=== PATIENT | female | born 1945 ===

== ENCOUNTER 2017-01-08 12:00 | Emergency (ER) | payer OTHER ==
[2017-01-08 12:01] VITALS: BMI 29.2
[2017-01-08 12:07] VITALS: BP 173/78; RESP 18; TEMP 97.3
[2017-01-08] MEDS ORDERED: Bacitracin 500 Units/gm Oint Foilpak UD TOP ONE (12:33)
--- NOTE | 2017-01-08 12:33 | C.PDOC ---
History Of Present Illness 71yo female with history of diabetes, presents to ED for evaluation of laceration sustained on her left 4th digit 4 days ago. Patient reports she accidentally injured herself with a knife in the kitchen. She is currently complaining of swelling to the area. She denies any fever, chills or discharge from the laceration site. Time Seen by Provider: 01/08/17 12:23 Chief Complaint (Nursing): Finger,Hand,&Wrist History Per: Patient History/Exam Limitations: no limitations Onset/Duration Of Symptoms: Days (4) Current Symptoms Are (Timing): Still Present Quality Of Symptoms: Swollen. denies: Draining Past Medical History Reviewed: Historical Data, Nursing Documentation, Vital Signs Vital Signs: Last Vital Signs Temp 97.3 F L 01/08/17 12:02 Pulse 102 H 01/08/17 12:02 Resp 18 01/08/17 12:02 BP 173/78 H 01/08/17 12:02 Pulse Ox 100 01/08/17 12:33 - Medical History PMH: Diabetes, HTN, Hypercholesterolemia Denies: Chronic Kidney Disease Surgical History: No Surg Hx - [facility] Procedures TETANUS TOXOID ADMINIST (05/04/13) Family History: States: No Known Family Hx, Unknown Family Hx - Social History Hx Tobacco Use: No Hx Alcohol Use: No Hx Substance Use: No - Immunization History Hx Tetanus Toxoid Vaccination: No Hx Influenza Vaccination: No Hx Pneumococcal Vaccination: No Review Of Systems Except As Marked, All Systems Reviewed And Found Negative. Constitutional: Negative for: Fever, Chills Musculoskeletal: Positive for: Hand Pain (laceration to left 4th digit, associted swelling) Physical Exam - Physical Exam Appears: Non-toxic, No Acute Distress Skin: Warm, Dry Neck: Supple Cardiovascular: Rhythm Regular Respiratory: Normal Breath Sounds Extremity: Normal ROM, No Deformity, Other (3mm open laceration over left 4th MCP; local erythema on tip of finger, no discharge noted.) Neurological/Psych: Oriented x3, Normal Speech, Normal Cognition ED Course And Treatment O2 Sat by Pulse Oximetry: 100 (RA) Pulse Ox Interpretation: Normal Medical Decision Making Medical Decision Making: Patient given antibiotics and instructions to follow up at clinic. Disposition Counseled Patient/Family Regarding: Diagnosis, Need For Followup, Rx Given - Disposition Referrals: [facility] [Outside] [facility] at [facility] [Outside] Disposition: HOME/ ROUTINE Disposition Time: 12:31 Condition: GOOD Prescriptions: Bacitracin [Bacitracin Opht OINT] 1 applic OD Q4 #1 tube Cephalexin [cephalexin] 500 mg PO BID #14 cap Sulfamethoxazole/Trimethoprim [Bactrim DS 800 mg-160 mg] 1 tab PO BID #14 tab Instructions: Cellulitis (ED), Laceration Without Closure (ED) Forms: [employer] (French) Print Language: LEBANESE - Clinical Impression Clinical Impression: Finger laceration, Cellulitis of finger - Scribe Statement The provider has reviewed the documentation as recorded by the Sil Shin Provider Attestation: All medical record entries made by the Sil were at my direction and personally dictated by me. I have reviewed the chart and agree that the record accurately reflects my personal performance of the history, physical exam, medical decision making, and the department course for this patient. I have also personally directed, reviewed, and agree with the discharge instructions and disposition. Orthopedic Care Application Of:: Finger Splint
[2017-01-08] MEDS ORDERED: Tmp-Smz 800 mg-160 mg DS Tab PO STA (12:34)
[2017-01-08] MEDS ORDERED: Tmp-Smz 800 mg-160 mg DS Tab ONE (12:39)
[2017-01-08] MEDS ORDERED: Bacitracin 500 Units/gm Oint Foilpak UD ONE (12:40)
[2017-01-08 13:00] VITALS: PULSE 99; O2SAT 96
== END 2017-01-08 13:00 | disposition home or self-care (01) ==
LOC: C.ER 12:00
DX: S61.215A Laceration without foreign body of left ring finger without damage to nail, initial encounter (principal); L03.012 Cellulitis of left finger; W26.0XXA Contact with knife, initial encounter

== ENCOUNTER 2017-10-10 12:07 | Emergency (ER) | payer MEDICARE ==
[2017-10-10 12:15] VITALS: O2SAT 98
[2017-10-10] MEDS ORDERED: Piperacillin/Tazobact 3.375 GM in Sodium Chloride 100 ML IVPB STA (12:36)
--- NOTE | 2017-10-10 12:53 | C.PDOC ---
History Of Present Illness 72 y/o female, with PMHx of diabetes, presents to ED c/o area of redness and swelling to left lower leg for the last 5 days. Pt notes she was seen at clinic for unrelated reason and was instructed to report to ER. Otherwise, she denies fever, chills, chest pain, shortness of breath, or any other complaints. Time Seen by Provider: 10/10/17 12:26 Chief Complaint (Nursing): Lower Extremity Problem/Injury History Per: Patient History/Exam Limitations: no limitations Past Medical History Reviewed: Historical Data, Nursing Documentation, Vital Signs Vital Signs: Last Vital Signs Temp 97.8 F 10/10/17 12:11 Pulse 95 H 10/10/17 12:11 Resp 16 10/10/17 12:11 BP 146/83 10/10/17 12:11 Pulse Ox 98 10/10/17 12:58 - Medical History PMH: Diabetes, HTN, Hypercholesterolemia Denies: Chronic Kidney Disease - [facility] Procedures TETANUS TOXOID ADMINIST (05/04/13) Family History: States: Unknown Family Hx - Social History Hx Tobacco Use: No Hx Alcohol Use: No Hx Substance Use: No - Immunization History Hx Tetanus Toxoid Vaccination: No Hx Influenza Vaccination: No Hx Pneumococcal Vaccination: No Review Of Systems Except As Marked, All Systems Reviewed And Found Negative. Constitutional: Negative for: Fever, Chills Cardiovascular: Negative for: Chest Pain Respiratory: Negative for: Shortness of Breath Musculoskeletal: Positive for: Leg Pain (left) Skin: Positive for: Other (redness, swelling to left lower leg) Neurological: Negative for: Weakness, Numbness Physical Exam - Physical Exam Appears: Non-toxic, No Acute Distress Skin: Warm, Dry, Other (area of induration and erythema to left lateral tib fib area) Head: Atraumatic, Normacephalic Eye(s): bilateral: Normal Inspection Oral Mucosa: Moist Neck: Normal ROM, Supple Chest: Symmetrical Cardiovascular: Rhythm Regular Respiratory: Normal Breath Sounds, No Rales, No Rhonchi, No Wheezing Gastrointestinal/Abdominal: Soft, No Tenderness Extremity: Normal ROM, No Tenderness, No Calf Tenderness, Capillary Refill ( less than 2 seconds), No Deformity, No Other (no palpable cord) Pulses: Left Dorsalis Pedis: Normal, Right Dorsalis Pedis: Normal Neurological/Psych: Oriented x3, Normal Speech, Normal Motor, Normal Sensation ED Course And Treatment - Laboratory Results Result Diagrams: 10/10/17 13:08 10/10/17 13:08 O2 Sat by Pulse Oximetry: 98 Pulse Ox Interpretation: Normal Medical Decision Making Medical Decision Making: Blood work ordered and reviewed. Pt was given Vancomycin, and Zosyn. Impression: Cellulitis Will attempt outpatient management for cellulitis. Disposition Counseled Patient/Family Regarding: Studies Performed, Diagnosis, Need For Followup, Rx Given - Disposition Referrals: [facility] [Outside] Disposition: HOME/ ROUTINE Disposition Time: 13:40 Condition: STABLE Additional Instructions: follow up with your doctor or medical clinic within 2 days call to make an appointment take medications as prescribed return to ER if symptoms worsens or progress Prescriptions: Cephalexin [Keflex] 500 mg PO QID #40 capsule Sulfamethoxazole/Trimethoprim [Bactrim DS 800 mg-160 mg] 1 tab PO BID #20 tab Instructions: Cellulitis (Skin Infection), Adult (DC) Forms: Gen Discharge Inst Moroccan, [employer] (Moroccan) Print Language: ROMANSH - Clinical Impression Clinical Impression: Cellulitis - Scribe Statement The provider has reviewed the documentation as recorded by the Scribe KP All medical record entries made by the Scribe were at my direction and personally dictated by me. I have reviewed the chart and agree that the record accurately reflects my personal performance of the history, physical exam, medical decision making, and the department course for this patient. I have also personally directed, reviewed, and agree with the discharge instructions and disposition.
[2017-10-10] MEDS ORDERED: Vancomycin 1 GM in Sodium Chloride 0.9% 200 ML IVPB STA (13:09)
[2017-10-10 13:12] LABS: BASO % 0.5 % (0.0-2.0); EOS # 0.1 K/uL (0.0-0.7); EOS % 1.2 % (0.0-4.0); HEMOGLOBIN 13.3 g/dL (11.0-16.0); LYMPH # 2.3 K/uL (1.0-4.3); LYMPH % 26.9 % (20.0-40.0); MEAN CELL VOLUME 84.5 fL (81.0-99.0); MEAN CORPUSCULAR HEMOGLOBIN 29.6 pg (27.0-31.0); MEAN PLATELET VOLUME 9.4 fL (7.2-11.7); MONO # 0.6 K/uL (0.0-0.8); MONO % 7.1 % (0.0-10.0); NEUT # 5.4 K/uL (1.8-7.0); NEUT % 64.3 % (50.0-75.0); RBC 4.5 Mil/uL (3.80-5.20); RED CELL DISTRIBUTION WIDTH 13.6 % (11.5-14.5); WHITE BLOOD COUNT 8.4 K/uL (4.8-10.8)
[2017-10-10] MEDS ORDERED: Piperacillin/Tazobact 3.375 gm 100 ML IVPB ONE (13:17)
[2017-10-10 13:26] LABS: ALB/GLOB RATIO 1.6 (1.0-2.1); ALBUMIN 4.4 g/dL (3.5-5.0); ALT/SGPT 27 U/L (9-52); AST/SGOT 18 U/L (14-36); BLOOD UREA NITROGEN 12 mg/dL (7-17); CALCIUM 10.9 mg/dl (8.6-10.4); GFR AFRICAN-AMERICAN > 60; GFR NON-AFRICAN AMERICAN > 60
[2017-10-10 13:47] VITALS: BP 146/73; PULSE 76; RESP 18; TEMP 98
== END 2017-10-10 13:48 | disposition home or self-care (01) ==
LOC: C.ER 12:07
DX: L03.116 Cellulitis of left lower limb (principal); I10 Essential (primary) hypertension; E11.9 Type 2 diabetes mellitus without complications; E78.00 Pure hypercholesterolemia, unspecified
CPT/HCPCS: 80053; 85025; 87040; 96374; 96375; 99285; J2543; J7050

== ENCOUNTER 2018-05-25 11:33 | Emergency (ER) | payer MEDICARE ==
[2018-05-25 12:00] VITALS: BMI 27.4
[2018-05-25 12:03] VITALS: O2SAT 96
[2018-05-25 13:54] LABS: SQUAMOUS EPITHIAL 1 /hpf (0-5); URINE BACTERIA OCC (<OCC); URINE BILIRUBIN NEGATIVE (NEGATIVE); URINE BLOOD NEGATIVE (NEGATIVE); URINE CLARITY Hazy (Clear); URINE COLOR Yellow (YELLOW); URINE GLUCOSE (UA) 3+ mg/dL (Normal); URINE LEUKOCYTE ESTERASE 3+ Leu/uL (Negative); URINE PROTEIN NEGATIVE (NEGATIVE); URINE UROBILINOGEN NORMAL mg/dL (0.2-1.0)
[2018-05-25] MEDS ORDERED: Tmp-Smz 800 mg-160 mg DS Tab PO STA (13:59)
[2018-05-25] MEDS ORDERED: Tmp-Smz 800 mg-160 mg DS Tab ONE (14:08)
--- NOTE | 2018-05-25 14:08 | C.PDOC ---
History Of Present Illness 72 year old female presents to ED with complaint of body aches and frontal headache for the past 2 days. Patient also complains of cough,fever, and chills. She states that she had her flu vaccine 6 months ago. Patient states she took nothing for her fever. Patient denies runny nose, nasal congestion, nausea, vomiting, and diarrhea. Time Seen by Provider: 05/25/18 12:08 Chief Complaint (Nursing): Flu-like Symptoms History Per: Patient History/Exam Limitations: no limitations Onset/Duration Of Symptoms: Days (2) Current Symptoms Are (Timing): Still Present Location Of Pain: Diffuse Myalgias, Headache Associated Symptoms: Fever, Chills, Cough, Myalgias. denies: Sputum, Sinus Drainage, Nasal Congestion, Nausea, Vomiting, Diarrhea Past Medical History Reviewed: Historical Data, Nursing Documentation, Vital Signs Vital Signs: Last Vital Signs Temp 98.5 F 05/25/18 12:00 Pulse 103 H 05/25/18 12:00 Resp 20 05/25/18 12:00 BP 120/75 05/25/18 12:00 Pulse Ox 96 05/25/18 12:00 - Medical History PMH: Diabetes, HTN, Hypercholesterolemia Denies: Chronic Kidney Disease Surgical History: No Surg Hx - [facility] Procedures TETANUS TOXOID ADMINIST (05/04/13) Family History: States: Unknown Family Hx - Social History Hx Tobacco Use: No Hx Alcohol Use: No Hx Substance Use: No - Immunization History Hx Tetanus Toxoid Vaccination: No Hx Influenza Vaccination: No Hx Pneumococcal Vaccination: No Review Of Systems Constitutional: Positive for: Fever, Chills, Malaise. Negative for: Weakness Respiratory: Positive for: Cough. Negative for: Sputum Gastrointestinal: Negative for: Nausea, Vomiting, Diarrhea Neurological: Negative for: Weakness, Numbness, Dizziness Physical Exam - Physical Exam Appears: Well, Non-toxic, No Acute Distress Skin: Normal Color, Warm, Dry Head: Atraumatic, Normacephalic Nose: No Discharge Oral Mucosa: Moist Throat: Normal, No Erythema, No Exudate Neck: Normal ROM, No Supple Chest: Symmetrical, No Deformity Cardiovascular: Rhythm Regular, No Murmur Respiratory: No Accessory Muscle Use, No Rales, No Rhonchi, No Wheezing Gastrointestinal/Abdominal: Soft, No Tenderness Extremity: Capillary Refill (<2 seconds) Pulses: Left Dorsalis Pedis: Normal, Right Dorsalis Pedis: Normal Neurological/Psych: Oriented x3, Normal Speech, Normal Cognition ED Course And Treatment - Laboratory Results Lab Results: Urine Color Yellow (YELLOW) 05/25/18 13:19 Urine Clarity Hazy (Clear) 05/25/18 13:19 Urine pH 5.0 (5.0-8.0) 05/25/18 13:19 Ur Specific [place] 1.017 (1.003-1.030) 05/25/18 13:19 Urine Protein Negative mg/dL (NEGATIVE) 05/25/18 13:19 Urine Glucose (UA) 3+ mg/dL (Normal) H 05/25/18 13:19 Urine Ketones Trace mg/dL (NEGATIVE) 05/25/18 13:19 Urine Blood Negative (NEGATIVE) 05/25/18 13:19 Urine Nitrate Positive (NEGATIVE) H 05/25/18 13:19 Urine Bilirubin Negative (NEGATIVE) 05/25/18 13:19 Urine Urobilinogen Normal mg/dL (0.2-1.0) 05/25/18 13:19 Ur Leukocyte Esterase 3+ Lea/uL (Negative) H 05/25/18 13:19 Urine WBC (Auto) 672 /hpf (0-5) H 05/25/18 13:19 Urine RBC (Auto) 1 /hpf (0-3) 05/25/18 13:19 Ur Squamous Epith Cells 1 /hpf (0-5) 05/25/18 13:19 Urine Bacteria Occ (<OCC) H 05/25/18 13:19 O2 Sat by Pulse Oximetry: 96 (in RA) Medical Decision Making Medical Decision Making: Impression: 72 year old female with complaint of cough, fever, chills, and body aches Plan: CXR Rapid strep Patient informed the nurse after my initial exam that she has had burning w/urination for the past few days. I added a UA and urine culture. CXR and rapid strep neg, UA positive for UTI, results d/w patient. Kenrick informed throat culture pending. Patient given Bactrim DS in ED and Rx for same. Patient stable for d/c home to f/u w/pcp and instructed to also RTED for new, worsening or concerning symptoms. Patient verbalized understanding. Disposition Counseled Patient/Family Regarding: Studies Performed, Diagnosis, Need For Fo llowup - Disposition Disposition: HOME/ ROUTINE Disposition Time: 14:08 Condition: STABLE Additional Instructions: FLORIDALMA WOOD, thank you for letting us take care of you today. Your provider was Vivi Ron MD and you were treated for COUGH//ABD PAIN//HEADACHES. The emergency medical care you received today was directed at your acute symptoms. If you were prescribed any medication, please fill it and take as directed. It may take several days for your symptoms to resolve. Return to the Emergency Department if your symptoms worsen, do not improve, or if you have any other problems. Please contact your doctor in 1-2 days for a follow up appointment. Bring any paperwork you were given at discharge with you along with any medications you are taking to your follow up visit. Our treatment cannot replace ongoing medical care by a primary care provider outside of the emergency department. Thank you for allowing the [facility] team to be part of your care today. If you had an X-Ray or CT scan: A Radiologist will review the ED reading if any change in treatment is needed we will contact you. If you had a blood, urine, or wound culture: It will take several days for the results, if any change in treatment is needed we will contact you. If you had an STI test: It will take 48 hours for the results. Please call after 1 week if you have not heard back. Prescriptions: Sulfamethoxazole/Trimethoprim [Bactrim DS 800 mg-160 mg] 1 tab PO BID #14 tab Instructions: Viral Syndrome (DC) Forms: [employer] (Slovenian), Gen Discharge Inst [place] Gu[place]an, [employer] ([place] Guinean) Print Language: BELARUSIAN - POA Present On Arrival: None - Clinical Impression Clinical Impression: UTI (urinary tract infection), Viral syndrome - Scribe Statement The provider has reviewed the documentation as recorded by the Scribe (Heike Mcknight) All medical record entries made by the Scribe were at my direction and personally dictated by me. I have reviewed the chart and agree that the record accurately reflects my personal performance of the history, physical exam, medical decision making, and the department course for this patient. I have also personally directed, reviewed, and agree with the discharge instructions and disposition.
[2018-05-25 14:16] VITALS: BP 124/66; PULSE 100; RESP 18; TEMP 98.4
--- NOTE | 2018-05-25 14:24 | RAD ---
Chest x-ray two views HISTORY: Fever and cough. COMPARISON: None available. FINDINGS: No focal infiltrate or effusion. Bibasilar breast and nipple shadows. Atherosclerotic calcification at the aortic knob. Tortuous aorta. Heart size within normal limits. Upper lobe granulomatous changes. Bilateral hilar prominence. IMPRESSION: No focal infiltrate or effusion. Bibasilar breast and nipple shadows. Atherosclerotic calcification at the aortic knob. Tortuous aorta. Heart size within normal limits. Upper lobe granulomatous changes. Bilateral hilar prominence.
== END 2018-05-25 14:16 | disposition home or self-care (01) ==
LOC: C.ER 11:33
DX: B34.9 Viral infection, unspecified (principal); N39.0 Urinary tract infection, site not specified; I10 Essential (primary) hypertension; E78.00 Pure hypercholesterolemia, unspecified; E11.9 Type 2 diabetes mellitus without complications